=== PATIENT | male | born 2000 | race Hispanic/Latino ===

== ENCOUNTER 2024-09-26 12:17 | Emergency (ER) | payer SELFPAY ==
[2024-09-26 12:20] VITALS: BP 124/75
--- NOTE | 2024-09-26 13:06 | ED.GENMED ---
History of Present Illness
General
Chief Complaint: Skin Surface Trauma
Time Seen by Provider: 09/26/24 13:06
History of Present Illness
History of Present Illness:
TIME OF INITIAL ENCOUNTER: 1:05 PM
HPI: Patient works for a [email or web address] and while at work, a tree branch struck his upper lip. He presents due to a laceration of the upper lip. He denies any other injury. I spoke to his coworker at bedside who translated without any
difficulty.
EXAM:
GENERAL: Well appearing in no distress
HEENT: The patient has a 1.5 cm slightly irregular laceration just above the vermilion border of the right side of the upper lip
NEUROLOGIC: Excellent strength all extremities, no obvious coordination deficits
PSYCHIATRIC: Appropriate mental status, normal insight and judgement
EXTREMITIES: Nontender, no edema, moves all extremities equally
SKIN: No rash, no lesions
NUMBER AND COMPLEXITY OF PROBLEMS ADDRESSED AT THE ENCOUNTER
� Chronic conditions affecting care: Denies any significant past medical history
� Acute Exacerbation and/or Progression of Chronic Illness: This is an acute problem
� Differential Diagnosis includes: Lip laceration, foreign body, contusion
AMOUNT AND/OR COMPLEXITY OF DATA TO BE REVIEWED AND ANALYZED
� I performed an independent evaluation of and my interpretation is:
EKG:
CT:
X-rays:
Laboratory Studies:
Other:
� Review of other/old records: No old records available for review
� Clinical information was obtained by an independent historian: I spoke to coworker at bedside
� Prescriptions/Medications Considered but not given:
� Further testing considered but not performed:
RISK OF COMPLICATIONS AND/OR MORBIDITY OR MORTALITY OF PATIENT MANAGEMENT
� Social determinants of health affecting care: Lives at home, works as a groundman/lineman, speaks [place]
� Discussion with other providers:
� Escalation of care including admission/observation vs risk of discharge considered: Wound was cleaned, irrigated, and 3 absorbable sutures placed. Tetanus status updated as well.
ANY OTHER UPDATES:
Phy Exam
Physical Exam
Physical Exam:
See HPI
Course
Orders/Labs/Results
Orders:
Orders
09/26/24 13:21
Tetanus/Diphth/Acelpertussis [Adacel] 0.5 ml IM .ONCE ONE
Vital Signs
Initial and Last Documented VS:
Initial Vital Signs
Temp Pulse Resp BP Pulse Ox
36.7 C 75 20 124/75 99
09/26/24 12:20 09/26/24 12:20 09/26/24 12:20 09/26/24 12:20 09/26/24 12:20
Last Documented Vital Signs
Temp Pulse Resp BP Pulse Ox
36.7 C 75 20 124/75 99
09/26/24 12:20 09/26/24 12:20 09/26/24 12:20 09/26/24 12:20 09/26/24 12:20
Procedures
Laceration Closure
Right Face:
Status of Wound: clean
Size of Wound in cm: 1.5
Anesthesia: 1% Lidocaine
Revision/Debridement: routine- no revision
Wound exploration: all visible FB removed
Type of Closure: single layer closure
Number of sutures: 3
Additional information:
5-0 Vicryl Rapide was used
*Critical Care Note
Total Time (30-74mins, 75-104mins- exclusive of procedures): Not Applicable
ED Attending Note
-
Portions of this chart may have been created with voice recognition software.� Occasional wrong word or��sound alike� substitutions may have occurred due to the inherent limitations of voice recognition software.
Discharge Plan
Departure
Patient Disposition: Home (Routine Discharge)
Date of Disposition: 09/26/24
Time of Disposition: :22
Patient with high blood pressure during this ER visit?: Yes
Discharge Problem:
Facial laceration
Instructions: Laceration Repair With Stitches (DC), BLOOD PRESSURE
Referrals:
UNKNOWN - PT DOES,NOT KNOW [Family Provider] -
Activity Restrictions/Additional Instructions:
I placed 3 absorbable stitches at your lip. These should dissolve over the next week or so. We updated your tetanus status today. Return here if worse or other concerns.
Interventions
Interventions:
*General Assessment Last Done: 09/26/24 12:20
ED- Fall Risk Assessment Last Done: 09/26/24 12:51
*ED COVID-19 Vaccine History Last Done: 09/26/24 12:51
ED-Skin Assessment Last Done: 09/26/24 12:51
Discharge Date and Time
Print Language: FIJIAN
[2024-09-26] MEDS: ADACEL 0.5 ML IM (13:29)
== END 2024-09-26 13:43 | disposition home or self-care (01) ==
LOC: EMR 12:17
PROVIDERS: EMERGENCY PHYSICIAN Emergency Medicine
DX: S01.511A Laceration without foreign body of lip, initial encounter (principal); W22.8XXA Striking against or struck by other objects, initial encounter; Y99.0 Civilian activity done for income or pay; Z23 Encounter for immunization
CPT/HCPCS: 99282; 12011; 90471; 90715